=== PATIENT | female | born 1940 | race African-American/Black ===

== ENCOUNTER 2019-02-05 18:53 | Inpatient (IN) | payer OTHER ==
[~2019-02-05] VITALS: Ht 165.1 cm; Wt 73.4 kg
[2019-02-05 19:01] VITALS: BP 19/86
[2019-02-05 19:36] LABS: URINE BILIRUBIN NEGATIVE (Negative); URINE BLOOD NEGATIVE (Negative); URINE CLARITY CLEAR; URINE COLOR YELLOW; URINE GLUCOSE-RANDOM* NEGATIVE (Negative); URINE KETONES NEGATIVE (Negative); URINE LEUKOCYTES TRACE (Negative); URINE NITRITE NEGATIVE (Negative); URINE PROTEIN (DIPSTICK) NEGATIVE (Negative); URINE UROBILINOGEN 0.2 E.U./dl (0.2-1.0)
[2019-02-05 19:36] LABS: HEMATOCRIT 24.5 % (37.0-47.0); HEMOGLOBIN 7.7 gm/dL (12.0-15.0); WBC 4.3 thou/uL (4.0-11.0)
[2019-02-05 19:38] LABS: BASOPHILS 0.8 % (0.0-2.0); EOSINOPHILS 2.3 % (0.0-3.0); MCH 21.3 pg (26.0-34.0); MCHC 31.3 g/dL (28.0-37.0); MONOCYTES 11.6 % (1.0-8.0); PLATELET COUNT 320 thou/uL (150-400); POLYS 46.3 % (36.0-66.0); RBC 3.61 mil/uL (4.20-5.00); RDW 17.9 % (10.5-14.5)
[2019-02-05 19:40] LABS: ANION GAP 7 mmol/L (7-16); BUN 7 mg/dL (7-18); CALCIUM 8.7 mg/dL (8.5-10.1); CHLORIDE 107 mmol/L (98-107); CO2 27 mmol/L (21-32); CREATININE 0.5 mg/dL (0.6-1.0); GLUCOSE 105 mg/dL (74-106); POTASSIUM 3.6 mmol/L (3.5-5.1); SODIUM 141 mmol/L (136-145)
[2019-02-05 19:47] LABS: APTT 24.9 Seconds (24.5-32.8); PROTIME 10.3 Seconds (9.3-11.4)
[2019-02-05 19:49] LABS: ALBUMIN 3.5 g/dL (3.4-5.0); LIPASE 106 U/L (73-393); MAGNESIUM 1.7 mg/dL (1.8-2.4); SGOT 25 U/L (15-37); SGPT 17 U/L (30-65); TOTAL BILIRUBIN 0.2 mg/dL (<0.1-1.0); TOTAL PROTEIN 7.4 g/dL (6.4-8.2); TROPONIN-I <0.06 ng/mL (<0.06)
[2019-02-05 20:09] LABS: ANISOCYTOSIS 1+; HYPOCHROMASIA 2+; MICROCYTES 2+
[2019-02-05] MEDS ORDERED: SINGULAIR 10 MG10 M1 PO (21:08)
[2019-02-05] MEDS ORDERED: CRESTOR10 MG PO (21:08)
[2019-02-05] MEDS ORDERED: NORVASC2.5 MG PO (21:09)
[2019-02-05] MEDS ORDERED: SENNA8.6 MG PO (21:09)
[2019-02-05] MEDS ORDERED: PROMETHAZINE/CODEINE PO (21:11)
[2019-02-05 21:24] VITALS: BP 161/84
[2019-02-05 21:33] VITALS: BP 161/84
[2019-02-05 22:10] VITALS: BP 166/69
[2019-02-05] MEDS ORDERED: DEMADEX20 MG PO (23:16)
[2019-02-05 23:33] LABS: ABSOLUTE RETIC COUNT 0.0668 10^6/uL; OBSERVED RETIC COUNT 1.72 % (0.6-2.6)
[2019-02-06 00:50] LABS: IRON 11 ug/dL (50-170)
[2019-02-06 00:59] LABS: % SATURATION 3 % (20-39); TIBC 373 ug/dL (250-450)
--- NOTE | 2019-02-06 03:00 | NUR ---
Received pt from ED at 2245. Pt was sent to the ED with PCP after discovering her Hgb to be 7.5. Type and cross performed in the ED. She wasnt given blood. Occult blood order. She is AOX4. VSS. No skin issues. SR on TELE. On room air. Stand by assist because of the generalized weakness. Daughter wants to be notified on any changes on her Hgb levels. Call light within reach. No identified needs at the moment. Will continue to monitor.
[2019-02-06 04:34] VITALS: BP 154/64
[2019-02-06 07:02] LABS: HEMATOCRIT 23.8 % (37.0-47.0); HEMOGLOBIN 7.6 gm/dL (12.0-15.0); MCH 21.5 pg (26.0-34.0); MCHC 31.8 g/dL (28.0-37.0); MCV 67.6 fL (80.0-100.0); RBC 3.52 mil/uL (4.20-5.00); RDW 17.9 % (10.5-14.5); WBC 4.3 thou/uL (4.0-11.0)
[2019-02-06 07:18] LABS: CALCIUM 8.9 mg/dL (8.5-10.1); CREATININE 0.5 mg/dL (0.6-1.0); POTASSIUM 3.6 mmol/L (3.5-5.1)
[2019-02-06 07:21] VITALS: BP 163/85
--- NOTE | 2019-02-06 09:26 | EKG ---
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: BRENDA : 1940 Requested By: Nemo Rojas Order Number: [id number] MD: Damien Allen Measurements Intervals [place] Rate: 76 P: 39 HI: 209 QRS: -15 QRSD: 112 T: 15 QT: 407 QTc: 458 Interpretive Statements Sinus rhythm No significant abnormality No previous ECG available for comparison Electronically Signed On 02-06-2019 9:26:29 CDT by Damien Allen [email or web address] ��������������������������������������������� <ELECTRONICALLY SIGNED> ���������������������������������������� By: Damien Allen MD, [facility] ��������������������������������������������� 02/06/19 0926 38 38 Damien Allen MD, FACC /EPI
[2019-02-06 13:49] VITALS: BP 153/66
--- NOTE | 2019-02-06 13:56 | NUR ---
ASSUMED CARE AT 0700, SHIFT ASSESSMENT DONE, MEDS GIVEN, VSS. DENIES PAIN, NAUSEA, VOMITING. UP WITH STANDBY ASSIST TO THE BATHROOM. HGB 7.6 TODAY. WORKED WITH PHYSICAL AND OCCUPATIONAL THERAPHY. WILL CONTINUE TO ASSESS AND ASSIST WITH ADLs NEEDED.
--- NOTE | 2019-02-06 14:13 | NUR ---
PT ADMITTED RELATED TO ANEMIA, WEAKNESS. CM REVIEWED CHART AND SPOKE WITH CARE TEAM. CM MET WITH PT AND KIERAN WEAVER AT BEDSIDE THIS DAY. PT IS A&O X4. CM ROLE INTRODUCED. PT INDICATED SHE LIVES ALONE IN A HOUSE WITH NO STEPS TO ENTER THE GARAGE OF THE HOME AND A FULL FLIGHT TO MAIN LIVING ARE BUT PT ALSO HAD A STAIR LIFT. SHE INDICATED SHE TAKES THE STAIRS AT LEAST TWICE A DAY TO STAY LIMBER. PT INDICATED SHE HAD BEEN INDEPEDENT WITH GAIT AND ADLS PSYCHOLOGY FELLOW. PT INDICATED NO DME OF HH HX. PT INDICATED SHE PLANS TO RETURN HOME ONCE MEDICALLY STABLE. CM TO FOLLOW INDICATED WITH DC PLANNING.
--- NOTE | 2019-02-06 19:13 | NUR ---
PATIENT TRANSFERRED FROM 457 TO SICU 222, PATIENT A&OX4 AND DENIES PAIN OR DISCOMFORT, PATIENT UP AD [place] WITHOUT DEVICE, PATIENT TOILETED SELF WITH STEADY GAIT, UNDERSTANDS NPO AFTER MIDNIGHT ORDER, DAUGHTER AT BEDSIDE, PATIENT ORIENTED TO ROOM AND STAFF, PERSONAL BELONGINGS AND CALL LIGHT IN REACH, WILL CONTINUE TO MONITOR
[2019-02-06 19:59] VITALS: BP 168/92
[2019-02-06 20:55] VITALS: BP 168/92
--- NOTE | 2019-02-07 04:22 | NUR ---
Assumed Pt. care at 1900. Remains A&Ox4; swallows meds whole w/o difficulty. Remains cont.B&B. Ambulates indepedently w/ steady gait. RFA SL noted; infusing NS@75mls/hr w/o difficulty. Remains NPO for EGD in A.M.. Denies pain or discomfort. No s/s of acute distress noted. Pt asleep in bed w/ call light/desired belongings within reach. Daughter at bedside, will continue to monitor.
[2019-02-07 07:47] VITALS: BP 161/92
--- NOTE | 2019-02-07 07:54 | HC ---
[facility] [place] [address] CONSULTATION Name: CASSANDRA FRANCE Room #: 222-P ADM IN M.R.#: [id number] Admission: 02/05/19 ������������������ Attend Phys: Harshal Shelton MD Discharge: ������������������ Date of : 40 Report #: [id number] THIS REPORT FOR: //name// CC: Shalonda MARTIN PCP DATE OF SERVICE: 02/06/2019 REASON FOR CONSULTATION: Iron deficiency anemia. HISTORY OF PRESENT ILLNESS: The patient is a very pleasant 78-year-old female who came in after she was seen by her family doctor with low hemoglobin and suggested she come to the hospital. The patient preferred not to go to [facility] where she had prior therapy and came to [facility] where she has not been before. The patient's history sounds like she may have had iron deficiency workup maybe 6 months or 12 months ago, it sounds like she had a colonoscopy done, did not have an upper endoscopy by her report. Lab tests here is very consistent with iron deficiency with a ferritin of I believe 12, percent saturation of 3, iron 11, TIBC 373 with normal folate and B12. Also, her hemoglobin here was approximately low 7's. White count 4.3 with normal differential. Platelets were 320. Also, her MCV here was 68. Her thalassemia discriminate suggested that this is iron deficiency not thalassemia. The patient has no knowledge about that in the past. The patient denies any blood in her urine or stool, had been a little bit weaker and tired for the last 2 months. Has maybe trace swelling. Has no dysphagia. Does have a little heartburn, maybe twice a week and takes Tums twice a week, has also taken Arthritis Tylenol or pill. It sounds like it may be Tylenol, but I am not sure, but is not a nonsteroidal. Weight has been stable. No nausea or vomiting. No dark colored urine. No asphalt-colored stool or blood in her toilet after she has a bowel movement. PAST MEDICAL HISTORY: Notable for what sounds like hypertension. She has had some knee pain, which slows her down. Also, for allergy she takes Singulair. Also, for hyperlipidemia, she takes rosuvastatin. SOCIAL HISTORY: She is retired from [employer] and several other jobs. Stopped smoking 40 years ago, stopped drinking alcohol about the same time, no street drugs. FAMILY HISTORY: No one with blood disorders. Sister with hypertension. Three daughters who are alive and well. LABORATORY DATA: Notable for BUN of 5, creatinine 0.5, total bilirubin 0.2, albumin 3.5. Other liver functions normal. White count was 4.3 with hemoglobin [facility] [address] [place] [address] CONSULTATION Name: CASSANDRA FRACNE Room #: 222-P ADM IN M.R.#: [id number] Admission: 02/05/19 ������������������ Attend Phys: Harshal Shelton MD Discharge: ������������������ Date of : 40 Report #: [id number] of 7.7, MCV as I mentioned was 68, platelets of 320. Differential is normal with a few extra monocytes, but not many. Imaging included a chest x-ray, which was nonacute. EKG showed a right bundle-branch block and a QTC interval of 458. MEDICATIONS: Here in the hospital include atorvastatin calcium 10 mg at bedtime, torsemide 10 mg daily, sennosides 8.6 daily, montelukast 10 mg daily, amlodipine 2.5 mg daily, Tylenol 650 mg every 4 hours p.r.n., Zofran p.r.n. and IV fluids. Note, the patient has not been transfused here. PHYSICAL EXAMINATION: GENERAL: The patient appears her stated age. VITAL SIGNS: Height is 5 feet 5 inches or 165.1 cm. Weight is 161.8 pounds or 73.4 kilograms. Blood pressure is 163/85, respirations 19, O2 sat 97% on room air, pulse 74, temperature is afebrile at 98.5. MOOD: She is alert and very pleasant. Daughter listened by phone. LUNGS: Clear to auscultation, symmetric. No rhonchi or rales. HEART: Regular rate. There may be a soft murmur. LYMPHATICS: No enlarged lymph nodes in the supraclavicular, cervical, axillary or inguinal region. ABDOMEN: Slightly obese. No masses, nontender. EXTREMITIES: May have trace edema. ASSESSMENT AND PLAN: 1. Iron deficiency anemia with past colonoscopy, very little red meat intake. Would still wonder if patient should have an upper endoscopy and maybe even a pill camera to make sure she does not have other sources for her mild dyspepsia or her chronic iron deficiency anemia. Once those are complete, we would then consider oral iron replacement trial until her hemoglobin is up to normal and also her iron is replete by iron studies. Probably, it takes 5 or 6 months. Other alternative would be dietary vegetables, which she could research if she does not wish to take oral iron, though I would suggest oral iron pill. The patient wishes to follow up with her primary care, Dr. Susan Schwartz, for GI evaluation. 2. Hypertension. Amlodipine per others. 3. Arthritis Tylenol per others. 4. Hyperlipidemia, rosuvastatin. 5. Allergies. Montelukast and also antihistamines as needed. We will be available if questions arise. My business card was given to the patient. ��������������������������������������������� <ELECTRONICALLY SIGNED> ���������������������������������������� By: Felix Mehta MD ��������������������������������������������� 02/07/19 0754 [id number] Felix Mehta MD /nt
--- NOTE | 2019-02-07 10:17 | NUR ---
SW reviewed chart and spoke with nursing. Pt was transferred to [facility] and is progressing towards goals for discharge. Pt to have EGD today per GI. Plan is for pt to discharge home when medically stable. SW is following to assist as needed with discharge planning.
--- NOTE | 2019-02-07 14:06 | NUR ---
PATIENT OFF THE UNIT FOR EGD SHE REMAINED NPO. IV SALINE LOCKED.
--- NOTE | 2019-02-07 16:16 | NUR ---
PATIENT RETURNED TO UNIT FROM EGD EXAM. PATIENT SETTLED AND VS TAKEN. SHE IS CURRENTLY LYING IN BED WITH CALL LIGHT WITHIN REACH. FINDINGS: NORMAL ESOPHAGUS, NORMAL STOMACH, NORMAL SMALL BOWEL. PATIENT WILL BE STARTED ON A REGULAR DIET FOR DINNER. SHE WILL HAVE A VIDEO CAPSULE ENDOSCOPY AN OUTPATIENT.
[2019-02-07 17:16] VITALS: BP 162/89
[2019-02-07 20:15] VITALS: BP 154/78
--- NOTE | 2019-02-08 04:40 | NUR ---
ASSUMED CARE OF PATIENT AT 1900. VSS. ASSESSMENT COMPLETED AT 2023 AND IS DOCUMENTED. RIGHT FA IV INFILTRATED AND NEW IV PLACED IN LEFT FA, IVF INFUSING WITHOUT COMPLICATION. NO C/O PAIN/N/V THIS SHIFT. PT CURRENTLY SLEEPING SOUNDLY IN BED IN NO ACUTE DISTRESS. CALL LIGHT WITHIN REACH. BED LOCKED AN DIN LOWEST POSITION. [facility].
--- NOTE | 2019-02-08 05:01 | NUR ---
THIS NURSE AGREES WITH ASSESSMENT AND NOTES FROM CORN HUSKER MACHINE OPERATOR ON THIS PATIENT.
[2019-02-08 06:01] LABS: HEMATOCRIT 24.2 % (37.0-47.0); HEMOGLOBIN 7.5 gm/dL (12.0-15.0); MCH 20.9 pg (26.0-34.0); MCV 67.3 fL (80.0-100.0); RBC 3.6 mil/uL (4.20-5.00); RDW 17.8 % (10.5-14.5); WBC 3.6 thou/uL (4.0-11.0)
[2019-02-08 08:07] VITALS: BP 156/78
--- NOTE | 2019-02-08 10:32 | NUR ---
PT A&OX4, IV INFUSING FLUIDS IN L FA W/O COMPS. AMBULATES WITH STAND BY ASSIST. NO SIGNS OF CONFUSION NOTED TODAY. RECEIVING IV IRON. NO C/O PAIN. WILL CONT. POC.
--- NOTE | 2019-02-08 17:09 | NUR ---
PT TRANSFERED TO [facility].
[2019-02-08 19:51] VITALS: BP 174/79
--- NOTE | 2019-02-09 03:01 | NUR ---
Assumed care of pt at 1900. Pt alert and oriented. Family at bedside. Denies pain. Requests cough syrup at hs. Call light within reach. Will continue to monitor.
[2019-02-09 04:00] VITALS: BP 143/67
[2019-02-09 07:06] VITALS: BP 156/68
--- NOTE | 2019-02-09 11:08 | NUR ---
PT A&OX4, IV INTACT IN L AC. AMBULATES WITH STAND BY ASSIST. PT C/O ARTHRITIS PAIN TO KNEES. LABS WILL BE DRAWN IN AM. PLANS ARE FOR PT TO [facility]. WILL CONT POC.
[2019-02-09 16:03] VITALS: BP 137/61
[2019-02-10 03:39] LABS: HEMATOCRIT 23.2 % (37.0-47.0); HEMOGLOBIN 7.2 gm/dL (12.0-15.0); MCHC 31.1 g/dL (28.0-37.0); MCV 67.4 fL (80.0-100.0); RBC 3.44 mil/uL (4.20-5.00); RDW 17.6 % (10.5-14.5); WBC 4.5 thou/uL (4.0-11.0)
[2019-02-10 04:52] VITALS: BP 118/43
--- NOTE | 2019-02-10 07:30 | NUR ---
ASSESSMENT COMPLETED.PTEPR REPORT PT WAS UP ADLIB BUT FAMILY INFORMED THIS NURSE THAT PT WOULD NEED SOME ASSISTANCE,PASSED ON TO THE AM NURSE.PT STILL WITH COUGH,REQUESTED FOR CODEINE AT [facility],WENT BACK TO CHECK ON PT AT [facility],PT DECLINED THE MED,STATED THAT SHE DOES NOT HAVE ANY COUGH SO FAR.DTR AT BEDSIDE ALL NIGHT ASSISTING PT.REPORT TO AM NURSE.
[2019-02-10 08:35] VITALS: BP 153/61
[2019-02-10 14:24] VITALS: BP 138/56
[2019-02-10 14:30] VITALS: BP 130/52; BP 137/57; BP 145/57
--- NOTE | 2019-02-10 17:38 | NUR ---
SW reviewed chart and spoke with nursing and attending physician. Pt was moved [facility] from [facility] and is progressing towards goals for discharge. Pt's Hgb lower today. Pt will follow up with GI as an outpatient. Plan is for pt to discharge home when medically stable. ELOISA is following to assist as needed with discharge planning.
--- NOTE | 2019-02-10 19:13 | NUR ---
ASSUMED CARE OF PT AT 0700. ASSESSMENT CHARTED. A&O,X4. C/O BILATERAL CHRONIC KNEE PAIN R/T ARTHRITIS, VOLTERAN CREAM GIVEN ORDERED. CONCERNED ABOUT LOW HBG, 1 UNIT PRBC TRANSFUSION ADMINISTERED ORDERED. PT TOLERATED PROCEDURE WELL, NO REACTIONS NOTED. VSS. ROOM AIR. STANDBY ASSIST TO BATHROOM. FAMILY INVOLVED IN CARE AND AT BEDSIDE THROUGHOUT DAY. IV INFILTRATED, NEW IV INSERTED. PT STATES SHE FEELS BETTER AFTER BLOOD TRANSFUSION TODAY, POSSIBLE DISCHARGE HOME TOMORROW.
[2019-02-10 19:45] VITALS: BP 160/61
--- NOTE | 2019-02-11 04:47 | NUR ---
Assumed pt care at 1900.Pt A/Ox4,VSS.C/o pain to bilateral knees Voltaren gel applied as ordered with relief reported. PT is up with SBA,dtr at the bedside for the night.Voiding without any difficulties. Pt resting quietly eyes closed no distress noted. Call light/personal items within reach,hourly rounding done. Will continue to monitor pt.
[2019-02-11 05:32] LABS: HEMATOCRIT 27.2 % (37.0-47.0); HEMOGLOBIN 8.7 gm/dL (12.0-15.0)
[2019-02-11 05:51] VITALS: BP 150/59
[2019-02-11 08:00] VITALS: BP 151/61
--- NOTE | 2019-02-11 09:12 | NUR ---
ASSESMENT COMPLETED. VSS. A/O. DENIES PAIN. NO NOTED SOA. NO NV. PT RESTING IN BED. ANTICIPATING DC HOME TODYAY. MEDS GIVEN ORDERED. DTR AT BEDSIDE.
--- NOTE | 2019-02-11 09:52 | NUR ---
DISCHARGE NOTE: SW reviewed chart and spoke with nursing. Pt is progressing towards goals for discharge and should d/c home later today. SW met with pt and dtr at bedside to discuss discharge plan. SW discussed possible discharge needs: HH. Pt and dtr both decline HH services. Pt's family will provide transportation home. No additional SW needs identified at this time, but is available to assist should needs arise.
[2019-02-11] MEDS ORDERED: PANTOPRAZOLE SO40 M1 PO (12:39)
[2019-02-11] MEDS ORDERED: VOLTAREN GEL 1100 G1 TOP (12:39)
[2019-02-11] MEDS ORDERED: ACETAMINOPHEN325 M1 PO (12:39)
[2019-02-11] MEDS ORDERED: IRON325 PO (12:48)
[2019-02-11 13:12] VITALS: BP 151/61
--- NOTE | 2019-02-11 15:27 | NUR ---
DC INSTRUCTIONS GIVEN TO PT AND DTRS. PT VERBALIZED UNDERSTANDING. SCRIPT GIVEN AND CALLED IN TO PHARMACY. PT DCD IN STABLE CONDITION.
== END 2019-02-11 15:23 | disposition home or self-care (01) | DRG 812 ==
LOC: ER 18:53 → EROBS 20:41 → 4W 20:41 → 4E 20:41 → SICU 20:41 → 4W 21:45 → ENTRNSPT 02-06 18:00 → SICU 02-06 18:42 → EDTRNSPTSTS 02-07 12:05 → CMPTRNSPT 02-07 12:07 → 4E 02-08 16:55 → ENTRNSPT 02-11 15:08 → 4E 02-11 15:23
PROVIDERS: Hospitalist; Nurse Practitioner; Nurse Practitioner Family; Physician Assistant; ADMIT Internal Medicine
PROC: 0DJ08ZZ Inspection of Upper Intestinal Tract, Via Natural or Artificial Opening Endoscopic (ICD-10-PCS; principal; 2019-02-07)
PROC: 30233N1 Transfusion of Nonautologous Red Blood Cells into Peripheral Vein, Percutaneous Approach (ICD-10-PCS; 2019-02-10)
DX: D50.9 Iron deficiency anemia, unspecified (principal); I10 Essential (primary) hypertension; E78.5 Hyperlipidemia, unspecified; M17.10 Unilateral primary osteoarthritis, unspecified knee; R63.0 Anorexia; E83.42 Hypomagnesemia; K21.9 Gastro-esophageal reflux disease without esophagitis; Z82.49 Family history of ischemic heart disease and other diseases of the circulatory system; Z88.8 Allergy status to other drugs, medicaments and biological substances; Z88.6 Allergy status to analgesic agent; Z79.1 Long term (current) use of non-steroidal anti-inflammatories (NSAID); Z68.26 Body mass index [BMI] 26.0-26.9, adult; Z90.710 Acquired absence of both cervix and uterus
CPT/HCPCS: 10045; 10783; 15002; 62110; 62900; 70005

== ENCOUNTER → 2019-02-21 | Outpatient (CLI) | payer OTHER ==
[~2019-02-21] MED LIST: ACETAMINOPHEN325 M1 PO; CRESTOR10 MG PO; DEMADEX20 MG PO; IRON325 PO; NORVASC2.5 MG PO; PANTOPRAZOLE SO40 M1 PO; PROMETHAZINE/CODEINE PO; SENNA8.6 MG PO; SINGULAIR 10 MG10 M1 PO; VOLTAREN GEL 1100 G1 TOP
== END | disposition home or self-care (01) ==
LOC: GI 08:00
DX: D50.9 Iron deficiency anemia, unspecified (principal); I10 Essential (primary) hypertension; E78.5 Hyperlipidemia, unspecified; Z90.710 Acquired absence of both cervix and uterus; Z79.899 Other long term (current) drug therapy; Z98.890 Other specified postprocedural states; Z86.010 Personal history of colon polyps

== ENCOUNTER → 2020-11-17 | Outpatient (CLI) | payer OTHER | LOC: SJCVCIMAG 09:46 | PROVIDERS: ATTEND Nuclear Medicine Nuclear Cardiology | DX: I73.9 Peripheral vascular disease, unspecified (principal); M79.661 Pain in right lower leg; M79.662 Pain in left lower leg ==